=== PATIENT | male | born 2000 | race Caucasian/White ===

== ENCOUNTER 2021-03-02 13:39 | Emergency (ER) | payer OTHER ==
[~2021-03-02] VITALS: Ht 177.8 cm; Wt 65.3 kg
[2021-03-02 13:46] VITALS: BP 120/65
[2021-03-02] MEDS ORDERED: AMOX-430 PO (14:12)
[2021-03-02] MEDS ORDERED: BACI/NEOM/POLY B OINT PKT 1 UDPKT PACKET ONE (14:12)
[2021-03-02] MEDS ORDERED: TDAP [DIPH/PERTUSSIS/TET] 0.5 ML VIAL IM ONE ×2 (14:12→14:30)
--- NOTE | 2021-03-02 14:21 | NUR ---
Patient discharged to home in stable condition. Written and verbal after care instructions given. Patient verbalizes understanding of instruction.
[2021-03-02] MEDS ORDERED: BACI/NEOM/POLY B OINT PKT 1 UDPKT PACKET TP ONE (14:30)
== END 2021-03-02 14:20 | disposition home or self-care (01) ==
LOC: ER 13:43
DX: S51.832A Puncture wound without foreign body of left forearm, initial encounter (principal); Z79.899 Other long term (current) drug therapy; W54.0XXA Bitten by dog, initial encounter; Y93.01 Activity, walking, marching and hiking; Y92.89 Other specified places as the place of occurrence of the external cause; Y99.8 Other external cause status
CPT/HCPCS: 90715